=== PATIENT | male | born 1955 | race Caucasian/White ===

== ENCOUNTER 2017-03-07 11:28 | Day surgery (SDC) | payer BC, SELFPAY ==
[2017-03-03 15:06] VITALS: BMI 24.7
[2017-03-07] VITALS (10 sets, daily range): BP systolic 99–137; BP diastolic 57–73; PULSE 53–66; RESP 15–106; TEMP 36.7; O2SAT 95–100
--- NOTE | 2017-03-07 12:39 | [facility].SCOPE ---
- Procedure: Date: 03/07/17 Patient Date of :: 1955 Procedure Performed:: Colonoscopy with cold snare polypectomy Equipment: Olympus 180 variable stiffness pediatric colonoscope Indications:: Mr. Manriquez is a 61-year-old gentleman who is here for follow-up screening/surveillance colonoscopy. His last colonoscopy was 8 or 9 years ago (Dr. Shaka Barney) and a couple of polyps were removed. The patient does have some bowel irregularity and intermittent constipation. He reports no abdominal pain, weight loss, change in bowel habits or rectal bleeding. He reports no family history of colon cancer. Performing Provider:: Seb Dumont MD Referring Provider:: Ariel Rios MD Sedation:: Fentanyl 100 mg IV/ Versed 7 mg IV Procedure:: Prior to the procedure, a history and physical exam was performed, and patient's medications and allergies were reviewed. The risks, benefits and alternatives of the sedation and procedure were discussed with the patient. All questions were answered and informed consent was obtained. The patient was brought to the procedure room. Patient identification and proposed procedure were verified by the physician and the nurse. The patient was placed in a left lateral decubitus position and the scope was passed under direct vision. Throughout the procedure, the patient's blood pressure, pulse, and oxygen saturations were monitored continuously. The colonoscopy was accomplished without difficulty. The patient tolerated the procedure well. Findings:: On digital rectal examination there was normal rectal tone. There were no external hemorrhoids. The colonoscope was introduced through the anal canal to the rectum and advanced to the cecum. The ileocecal valve and appendiceal orifice were identified. The scope was advanced a short distance into the ileum which appeared grossly normal. The scope was then withdrawn into the colon. There were 3 colon polyps identified in the descending ?1 and sigmoid ?2. These ranged in size from 3-6 mm and were all removed via cold snare polypectomy. There were scattered diverticuli throughout the descending and sigmoid colon (LEFT colon). The rectum itself was normal. Upon retroflexion within the rectum there were grade 1 internal hemorrhoids. Impression: 1. Diminutive colonic polyps ?3 2. Left-sided diverticulosis 3. Grade internal hemorrhoids Recommendations:: I will follow up the polyp pathology and recommend repeat colonoscopy again in 5 years based upon the polyp histology. I would encourage fiber supplementation on a long-term daily maintenance basis. Complications:: None Estimated blood obtained (mL): 0
--- NOTE | 2017-03-07 12:42 | P.PCN_ITS ---
- Procedure: Date: 03/07/17 Patient Date of :: 1955 Procedure Performed:: Colonoscopy with cold snare polypectomy Equipment: Olympus 180 variable stiffness pediatric colonoscope Indications:: Mr. Manriquez is a 61-year-old gentleman who is here for follow-up screening/ surveillance colonoscopy. His last colonoscopy was 8 or 9 years ago (Dr. Shaka Barney) and a couple of polyps were removed. The patient does have some bowel irregularity and intermittent constipation. He reports no abdominal pain , weight loss, change in bowel habits or rectal bleeding. He reports no family history of colon cancer. Performing Provider:: Seb Dumont MD Referring Provider:: Ariel Rios MD Sedation:: Fentanyl 100 mg IV/ Versed 7 mg IV Procedure:: Prior to the procedure, a history and physical exam was performed, and patient' s medications and allergies were reviewed. The risks, benefits and alternatives of the sedation and procedure were discussed with the patient. All questions were answered and informed consent was obtained. The patient was brought to the procedure room. Patient identification and proposed procedure were verified by the physician and the nurse. The patient was placed in a left lateral decubitus position and the scope was passed under direct vision. Throughout the procedure, the patient's blood pressure, pulse, and oxygen saturations were monitored continuously. The colonoscopy was accomplished without difficulty. The patient tolerated the procedure well. Findings:: On digital rectal examination there was normal rectal tone. There were no external hemorrhoids. The colonoscope was introduced through the anal canal to the rectum and advanced to the cecum. The ileocecal valve and appendiceal orifice were identified. The scope was advanced a short distance into the ileum which appeared grossly normal. The scope was then withdrawn into the colon. There were 3 colon polyps identified in the descending ?1 and sigmoid ?2. These ranged in size from 3-6 mm and were all removed via cold snare polypectomy. There were scattered diverticuli throughout the descending and sigmoid colon ( LEFT colon). The rectum itself was normal. Upon retroflexion within the rectum there were grade 1 internal hemorrhoids. Impression: 1. Diminutive colonic polyps ?3 2. Left-sided diverticulosis 3. Grade internal hemorrhoids Recommendations:: I will follow up the polyp pathology and recommend repeat colonoscopy again in 5 years based upon the polyp histology. I would encourage fiber supplementation on a long-term daily maintenance basis. Complications:: None Estimated blood obtained (mL): 0
== END 2017-03-07 13:40 | disposition home or self-care (01) ==
LOC: OUTP 11:30
PROVIDERS: Family Provider Family Medicine; PCP Family Medicine; Visit Provider Internal Medicine Gastroenterology
PROC: 0DJD8ZZ Inspection of Lower Intestinal Tract, Via Natural or Artificial Opening Endoscopic (ICD-10-PCS; CPT 45378; principal; 2017-03-07 12:30)
DX: Z12.11 Encounter for screening for malignant neoplasm of colon (principal); K63.5 Polyp of colon; K57.30 Diverticulosis of large intestine without perforation or abscess without bleeding; K64.0 First degree hemorrhoids; Z86.010 Personal history of colon polyps
CPT/HCPCS: 45380; 99152; 99153

== ENCOUNTER → 2018-01-26 10:51 | Outpatient (CLI) | payer BC, SELFPAY ==
--- NOTE | 2018-01-26 10:54 | CT_ITS ---
EXAM: CT LUNG LOW DOSE WO CONTRAST TECHNIQUE: The exam was performed on a GE Light Speed [address] scanner using 3.0 mGy CTDI. A low dose helical CT CHEST was performed on a multi-detector scanner. All CT scans at this facility use one or more dose reduction techniques, viz.: automated exposure control, ma/kV adjustment per patient size (including targeted exams where dose is matched to indication, i.e. head) or iterative reconstruction technique. The LDCT was performed in a facility that meets the criteria for the screening program. Data regarding this exam was submitted to ACR which is an approved registry. The order for this exam indicates that it came as a result of a lung cancer screening counseling shard decision-making visit that included all the elements required of such a visit including smoking cessation. The radiologist interpreting this exam meets the CMS criteria for the LDCT lung cancer screening program. The exam is reported using the Lung-RADS classification scale and reported to the ACR registry. NOTE: This study was performed for the specific purposes of lung cancer screening and is not an alternative to diagnostic chest CT. RADIATION DOSE: CTDI vol(CT dose Index-volume) = 2.9mGy DLP (Dose Length Product) = 107.33 mGy-cm COMPARISON: . December 2016 low-dose screening CT chest HISTORY: 1 pack a day for 25-30 years. = 25-30 pack year history current smoker FINDINGS: Indeterminate/minimally suspect Lung Nodules(CATEGORY 3-as detailed below Findings Warrant follow-up CT chest 4-6 months LUNG PARENCHYMA FINDINGS: There is severe centrilobular and paraseptal emphysematous changes. Scattered blebs are most evident at the upper lung lacey upper lobes bilaterally most evident towards the apices. . Minimal stable apical pleural and parenchymal scarring at apices bilaterally. No significant change. No highly suspicious nodules evident but there are scattered small indeterminate nodules which will benefit from 6 month follow-up Indeterminate/Nodules(Category 3): . Bilateral small nodules which have increased in number since previous 2017 exam. A few new nodules & evident & others increased in size RIGHT CHEST: R UL superiorly (on axial slice 23 coronal 44.) New small somewhat stellate small density less than 5 mm size. RUL: 5 mm noncalcified nodule RUL anteriorly right midlung. (Axial slice 43 sag 33).Similar to perhaps possibly slight larger . R UL just inferior to this is a near 7 mm nodule. ( Axial slice 48 sagittal 34: Coronal 28) This nodule appears larger than previous 2017 study. . It is rather dense centrally & conceivably could be a granuloma but nonspecific at this point LEFT CHEST: L UL: At the anterior lateral periphery of Left Upper Lobe there is a tiny 3.5 mm wispy area of density/nodule (axial slice 28 sagittal 70, coronal 44) which is New Since prior study.. LLL: New 5 mm nodule just posterior to left emelina & left lower lobe bronchus on axial image 43, sagittal 53. . At the precardiac fat there is a stable 12 mm nodule.. Heart. 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 UPPER ABDOMEN. Stable benign right renal cyst. Extending from lateral mid right kidney. There is also a vague up to 2.5 cm probable debris-filled cyst at the lateral aspect of the upper pole right kidney. At the anterior left lobe of liver just lateral to the fissure for the ligamentum teres, falciform ligament there is a 3 x 2 cm probable hepatic cyst. This is more evident is larger than on last years study. I would suggest ultrasound to further survey of the liver to confirm cyst he
== END ==
PROVIDERS: PCP Family Medicine; Visit Provider Family Medicine
DX: Z12.2 Encounter for screening for malignant neoplasm of respiratory organs (principal); Z87.891 Personal history of nicotine dependence

== ENCOUNTER → 2018-02-15 08:21 | Outpatient (CLI) | payer BC, SELFPAY ==
--- NOTE | 2018-02-15 08:27 | US_ITS ---
US abdomen complete HISTORY: ITS.REASON: HEAPTIC CYST,RENAL CYST ORDERING PHYSICIAN: Ariel Rios MD PATIENT AGE: 62 years COMPARISON: None FINDINGS: PANCREAS:Poorly demonstrated due to overlying bowel gas LIVER:There is appropriate direction of the portal blood flow with a nondilated portal vein. 2.6 cyst is present in the left hepatic lobe anteriorly corresponding to the CT abnormality RIGHT KIDNEY:Unremarkable. Normal size and echogenicity. No hydronephrosis. There are 2 right renal cysts in the upper pole measuring approximately 2 and 2.4 cm. No hydronephrosis LEFT KIDNEY:Unremarkable. No hydronephrosis. Normal size and echogenicity. There is a small left renal cyst along the upper pole at 15 mm GALLBLADDER:No gallstones, gallbladder wall thickening, pericholecystic fluid, or biliary dilatation. AORTA:No evidence of aneurysmal dilatation. SPLEEN:Unremarkable. Normal size and echogenicity ASCITES:None demonstrated. IMPRESSION: 1. Bilateral renal cysts. 2. Benign-appearing cyst within left lobe of the liver at 2.6 [address] abnormality.
== END ==
PROVIDERS: PCP Family Medicine; Visit Provider Family Medicine
DX: K76.89 Other specified diseases of liver (principal); N28.1 Cyst of kidney, acquired
CPT/HCPCS: 76700

== ENCOUNTER → 2019-01-23 09:24 | Outpatient (POV) | payer BC, SELFPAY | PROVIDERS: Visit Provider Dermatology | DX: Z00.00 Encounter for general adult medical examination without abnormal findings (principal) ==

== ENCOUNTER → 2019-03-02 08:24 | Outpatient (CLI) | payer MEDICARE, SELFPAY ==
--- NOTE | 2019-03-02 08:27 | CT_ITS ---
PROCEDURE: CT LUNG SCREENING CLINICAL INDICATION: TOBACCO USE 30+ pack-year smoking history, asymptomatic for lung cancer COMPARISON: [facility]CT[facility] LDCT FOR LUNG CA SCREEN from 01/19/[address] lung screening from 01/26/2018 TECHNIQUE: The exam was performed on a GE Light Speed [address] scanner using 2.90 mGy CTDI. A low dose helical CT CHEST was performed on a multi-detector scanner. All CT scans at the facility use one or more dose reduction, viz: automated exposure control, ma/kV adjustment per patient size (including targeted exams where dose is matched to indication, i.e. head), or iterative reconstruction technique. The LDCT was performed in a facility that meets the criteria for the screening program. Data regarding this exam was submitted to ACR which is an approved registry. The order for this exam indicates that it came as a result of a lung cancer screening counseling shard decision-making visit that included all the elements required of such a visit including smoking cessation. The radiologist interpreting this exam meets the CMS criteria for the LDCT lung cancer screening program. The exam is reported using the Lung-RADS classification scale and reported to the ACR registry. NOTE: This study was performed for the specific purposes of lung cancer screening and is not an alternative to diagnostic chest CT. RADIATION DOSE: CTDI vol(CT dose Index-volume) = 2.90mG DLP (Dose Length Product) = 100.55 mGcm FINDINGS: Changes of COPD with centrilobular and paraseptal emphysema. Prior CABG. No change 5 mm nodule within the right upper lobe anteriorly. There are fibrotic changes in the right lung base. No new suspicious nodules identified. The Incidental note made of coronary artery calcifications and bilateral gynecomastia. There is kyphosis of the thoracic spine with diffuse ankylosis. Mild enlargement of the left adrenal gland which is stable OTHER FINDINGS: No other pertinent findings evident. IMPRESSION: Lung rads category 2 benign. Recommend continued annual LD CT screening Dictated by: Cali Long MD 03/05/2019 06:45 Electronically signed by Cali Long MD in [place] 03/05/2019 06:45
== END ==
PROVIDERS: PCP Family Medicine; Visit Provider Family Medicine
DX: Z87.891 Personal history of nicotine dependence (principal); Z12.2 Encounter for screening for malignant neoplasm of respiratory organs

== ENCOUNTER → 2020-03-06 13:20 | Outpatient (CLI) | payer MEDICARE, SELFPAY ==
--- NOTE | 2020-03-06 13:25 | CT_ITS ---
PROCEDURE: CT LUNG SCREENING CLINICAL INDICATION: NICOTINE DEPENDENCE X 50 YEARS 30+ pack year smoking history COMPARISON: CT CT LUNG SCREENING from 03/02/2019 TECHNIQUE: The exam was performed on a GE Light Speed [address] scanner using 2.90 mGy CTDI. A low dose helical CT CHEST was performed on a multi-detector scanner. All CT scans at the facility use one or more dose reduction, viz: automated exposure control, ma/kV adjustment per patient size (including targeted exams where dose is matched to indication, i.e. head), or iterative reconstruction technique. The LDCT was performed in a facility that meets the criteria for the screening program. Data regarding this exam was submitted to ACR which is an approved registry. The order for this exam indicates that it came as a result of a lung cancer screening counseling shard decision-making visit that included all the elements required of such a visit including smoking cessation. The radiologist interpreting this exam meets the [facility] criteria for the LDCT lung cancer screening program. The exam is reported using the Lung-RADS classification scale and reported to the ACR registry. NOTE: This study was performed for the specific purposes of lung cancer screening and is not an alternative to diagnostic chest CT. RADIATION DOSE: CTDI vol(CT dose Index-volume) = 2.90mG DLP (Dose Length Product) = 111.51 mGcm FINDINGS: COPD with scattered areas of scarring with centrilobular and paraseptal emphysema. Stable 5 mm noncalcified nodule within the right upper lobe image 40 series 3 OTHER FINDINGS: Coronary artery calcifications. Gynecomastia. There are few scattered small cervical and axillary lymph nodes. Exophytic isodense the projects off the posterior aspect of the right kidney suggesting a renal cyst. Ankylosis with the thoracic spine with exaggerated kyphosis IMPRESSION: Lung-RADS Category 2 Benign Appearance or Behavior Follow-up: Continue annual screening with LDCT in 12 months Dictated by: Cali Long MD 03/16/2020 06:37 Cali Long MD in [place] 03/16/2020 06:37
== END ==
PROVIDERS: PCP Family Medicine; Visit Provider Family Medicine
DX: Z87.891 Personal history of nicotine dependence (principal); Z12.2 Encounter for screening for malignant neoplasm of respiratory organs
CPT/HCPCS: 71271

== ENCOUNTER → 2021-03-09 07:42 | Outpatient (CLI) | payer MEDICARE, SELFPAY ==
--- NOTE | 2021-03-09 07:46 | CT_ITS ---
FINAL REPORT CLINICAL HISTORY: H/O NICOTINE DEPENDENCE COMPARISON: 03/06/2020 FINDINGS: CTDI vol (mGy): 2.[address] images of the chest were obtained using the low-dose protocol for screening. Patient is status post median sternotomy. Again seen is gynecomastia. There is moderate emphysema and pulmonary scarring. There is no evidence of mediastinal or hilar mass or adenopathy. No axillary mass or adenopathy is identified. On the lung window images, within the anterior right upper lobe is a 6 mm nodule, unchanged from prior exam. There is no new mass or nodule. Incidental note is made of multiple bilateral renal masses which do not appear to represent simple cysts. IMPRESSION: Multiple bilateral renal masses, not simple cysts. Recommend renal mass protocol CT for further evaluation. Lung RADS category 2S. Recommend 12 month followup low-dose CT for further evaluation. Reviewed, Interpreted and Dictated by Shekhar Alcala III, MD Transcribed by Maria Alejandra Corona Authenticated by Shekhar Alcala III, MD on 03/09/2021 10:29:15 AM [facility]
== END ==
PROVIDERS: PCP Family Medicine; Visit Provider Family Medicine
DX: Z87.891 Personal history of nicotine dependence (principal); Z12.2 Encounter for screening for malignant neoplasm of respiratory organs
CPT/HCPCS: 71271

== ENCOUNTER → 2021-03-18 10:33 | Outpatient (CLI) | payer MEDICARE, SELFPAY | PROVIDERS: Visit Provider Nurse Practitioner | DX: U07.1 COVID-19 (principal) | CPT/HCPCS: C9803; U0003; U0005 ==

== ENCOUNTER → 2021-03-31 07:44 | Outpatient (CLI) | payer MEDICARE, SELFPAY ==
--- NOTE | 2021-03-31 07:48 | CT_ITS ---
FINAL REPORT TECHNIQUE: Axial CT images of the abdomen were obtained without contrast. Coronal reformatted images were also obtained.This study was performed with techniques to keep radiation doses as low as reasonably achievable (ALARA). Individualized dose reduction techniques using automated exposure control or adjustment of mA and/or kV according to the patient''s size were employed. CLINICAL HISTORY: RT RENAL MASS FINDINGS: There is mild atelectasis or scarring in the right lung base. The liver has an unremarkable appearance, without evidence of mass. The gallbladder appears normal without evidence of gallstones. There is no evidence of biliary ductal dilatation. The pancreas appears normal. The spleen size is within normal limits. There are multiple bilateral renal masses, some of which are hyperdense and do not appear to be simple cysts. A hyperdense right renal mass measures 12 mm. The largest right renal mass measures 34 mm. There is a posterior left renal mass measuring 11 mm. There are multiple other bilateral renal masses. These cannot be accurately characterized without contrast. There is bilateral adrenal gland enlargement favoring adenomas. No abnormal fluid collection is seen. No localized inflammatory processes identified. There are moderate vascular calcifications. IMPRESSION: Multiple bilateral renal masses. These cannot be accurately characterized without contrast, some do not appear to be simple cysts. A dedicated renal mass protocol CT without and with contrast or a renal MRI would be necessary to further characterize. If patient cannot receive contrast a follow-up CT in 6 months would be helpful to evaluate for size stability. Reviewed, Interpreted and Dictated by Shekhar Alcala III, MD Transcribed by Maria Del Carmen Godinez Authenticated by Shekhar Alcala III, MD on 03/31/2021 10:18:42 AM [facility]
== END ==
PROVIDERS: PCP Family Medicine; Visit Provider Family Medicine
DX: N28.89 Other specified disorders of kidney and ureter (principal)
CPT/HCPCS: 74150

== ENCOUNTER → 2021-04-09 09:28 | Outpatient (CLI) | payer MEDICARE, SELFPAY ==
--- NOTE | 2021-04-09 09:31 | MR_ITS ---
FINAL REPORT CLINICAL HISTORY: BILAT KIDNEY MASSES. ABNORMAL CT SCAN 03-31-21. RT SIDED BACK PAIN. COMPARISON: CT scan dated 01/28/2022 FINDINGS: Multiplanar MR imaging of the abdomen was performed without contrast. There is bibasilar atelectasis. Images of the liver reveal no evidence of mass. There is no evidence of biliary ductal dilatation. The gallbladder has an unremarkable appearance. Multiple masses are seen in both kidneys which cannot be completely characterized without contrast but some appear to be simple cysts including a 3.1 cm probable cyst in the right kidney. Multiple other bilateral renal masses demonstrate increased signal on the T1-weighted images which are favored to represent hemorrhagic cysts including an upper pole right renal cyst measuring 12 mm. There are 2 masses in the left kidney which show slight increased signal on T1-weighted images measuring 20 mm and 8 mm. These are indeterminate but also favor to represent complex/hemorrhagic cysts. Findings are stable since prior CT. IMPRESSION: Multiple bilateral renal masses which cannot be completely characterized but favor to be a combination of simple and complex/hemorrhagic cysts. These could be further evaluated with renal MRI or renal mass protocol CT in 6 months. Reviewed, Interpreted and Dictated by Shekhar Alcala III, MD Transcribed by Tamera Livingston Authenticated by Shekhar Alcala III, MD on 04/09/2021 01:25:38 PM [facility]
== END ==
PROVIDERS: PCP Family Medicine; Visit Provider Family Medicine
DX: N28.89 Other specified disorders of kidney and ureter (principal)
CPT/HCPCS: 74181

== ENCOUNTER → 2021-10-22 09:32 | Outpatient (CLI) | payer MEDICARE, SELFPAY ==
--- NOTE | 2021-10-22 09:35 | MR_ITS ---
FINAL REPORT TECHNIQUE: Multiplanar multisequence imaging of the abdomen was obtained without contrast. CLINICAL HISTORY: BILATERAL KIDNEY MASSES 6 month follow-up COMPARISON: 04/09/2021 FINDINGS: T2 hyperintense lesions in the anterior left lobe of the liver are unchanged and favored to be cysts. Remainder of the liver is homogeneous.. The gallbladder is present. The spleen is normal in size and signal intensity. The right adrenal gland is unremarkable. A left adrenal nodule appears stable and decreases in signal intensity on out of phase imaging most consistent with an adenoma. A small T2 hyperintense lesion along the superior aspect of the body of the pancreas is unchanged measuring approximately 1 cm. This is best seen on coronal T2-weighted image 16. There are bilateral renal lesions. On the right, there is a complex cyst with thin septa in the upper pole. There is a separate T2 hypointense, T1 hyperintense lesion in the upper pole, also stable. In the more inferior right kidney, there is a simple cyst. There are multiple simple cysts in the left kidney. A lesion in the anterior left kidney measuring 2.6 cm is not a simple cyst on T1-weighted imaging that is stable in appearance when compared to the prior exam. Limited evaluation of the GI tract is unremarkable. There is no ascites or lymphadenopathy. IMPRESSION: 1. Stable bilateral renal lesions, likely a combination of simple and complex (hemorrhagic/proteinaceous) cysts. 2. Stable T2 hyperintense liver lesions, likely cysts and a stable small T2 hyperintense lesion along the superior pancreas. 3. Stable left adrenal nodule, favor adenoma. Authenticated and [facility]
== END ==
PROVIDERS: PCP Family Medicine; Visit Provider Family Medicine
DX: N28.89 Other specified disorders of kidney and ureter (principal)
CPT/HCPCS: 74181

== ENCOUNTER → 2022-01-26 14:14 | Outpatient (POV) | payer MEDICARE, SELFPAY | PROVIDERS: Visit Provider Dermatology | DX: Z00.00 Encounter for general adult medical examination without abnormal findings (principal) ==

== ENCOUNTER → 2022-05-04 10:21 | Outpatient (CLI) | payer MEDICARE, SELFPAY ==
--- NOTE | 2022-05-04 10:29 | CT_ITS ---
FINAL REPORT CLINICAL HISTORY: H/O TOBACCO USE, smokes 3/4 pack currently for 54 yrs, was diagnoses with basal cell carcinoma 2022, no family hx of lung cancer COMPARISON: March 09, 2021 and March 02, 2019 FINDINGS: Low-Dose Chest CT Axial images were obtained from the lung apex to the mid abdomen by computed tomography. Low-dose protocol was utilized. CTDI vol (mGy): 2.90 DLP (mGy-cm): 102.90 There are several borderline axillary nodes, stable. There is no hilar or mediastinal adenopathy. There is gynecomastia. The heart is proper size. There is no pericardial or pleural effusion. Lung window images demonstrate a 6 mm anterior right upper lobe nodule on image 41, stable since 2020. No new mass or nodule is identified. There are moderate changes of emphysema with pulmonary scarring. On the limited images of the upper abdomen, multiple bilateral renal masses are again identified. Some of which do not appear to be simple cysts but are visually stable. IMPRESSION: 6 mm right upper lobe nodule stable since 2020. Modifier S: Multiple bilateral renal masses, some do not appear to be simple cysts but are visually stable. Lung RADS category 1S. Recommend 12 month follow-up low-dose chest CT. Reviewed, Interpreted and Dictated by Shekhar Alcala III, MD Transcribed by Maria Del Carmen Godinez Authenticated and [facility]
== END ==
PROVIDERS: PCP Family Medicine; Visit Provider Family Medicine
DX: Z87.891 Personal history of nicotine dependence (principal); Z12.2 Encounter for screening for malignant neoplasm of respiratory organs
CPT/HCPCS: 71271

== ENCOUNTER → 2023-02-10 11:13 | Outpatient (CLI) | payer MEDICARE, SELFPAY ==
--- NOTE | 2023-02-10 11:18 | CA_ITS ---
APPROVED REPORT EXAM: Comprehensive 2D, Doppler, and color-flow Echocardiogram Manager Vehicle: APOLINAR Gutierres, RVS Ht: 5 ft 5 in Wt: 156lbs BSA: 1.78 BP: 177/73 mmHg Indications: CAD , CP, Rh-[id number]-[id number] ago, Smoker, HTN 2D Dimensions IVSd 1.12 cm LVEF (Visual) 51.40 % PWd 1.10 cm LA Volume 49.20 mL LVDd 4.73 cm LA Volume Index [id number] mL/m2 (M/F) 16-34 LVDs 3.49 cm Left Atrium 2.73 cm M-Mode Dimensions LA Diam 3.45 cm (1.9-4.0) EPSs 1.21 cm TAPSE 1.41 (<1.7) LV Diastology E Decel Time 193 (160-240 msec) E/A Ratio 1.50 MED A' 10.10 cm/s LAT A' 14.60 cm/s Aortic Valve BO Index 1.19 cm2/m2 AoV Peak Dat. 125.0 (50-130 cm/s) AO Peak GR. 6.20 mmHg AO Mean GR. 3.10 (<5 mmHg) AO VTI 28.7 (18-25 cm) BO (VTI) 2.16 (2.5-4.5 cm2) Mitral Valve MV A Velocity 48.0 (40-130 cm/s) E/A Ratio 1.50 Tricuspid Valve TR P. Velocity 197.00 cm/s RAP Estimate 10.00 mmHg RVSP 25.50 mmHg Left Ventricle The left ventricle is normal size. The left ventricular systolic function is normal. The left ventricular ejection fraction is within the normal range. There is increased LV wall thickness. There is normal LV segmental wall motion. Diastolic function is normal. LVEF is 55%. Right Ventricle The right ventricle is mildly dilated. The right ventricular systolic function is normal. Atria The left atrium size is normal. The right atrium size is normal. Aortic Valve The aortic valve is mildly thickened. The aortic valve opens well. There is no aortic valvular stenosis. No aortic regurgitation is present. Mitral Valve The mitral valve leaflets are thin and pliable. No evidence of mitral valve stenosis. Trace mitral regurgitation. Tricuspid Valve The tricuspid valve leaflets are thin and pliable. Trace tricuspid regurgitation. RVSP is normal. Pulmonic Valve The pulmonary valve is normal in structure. Trace pulmonic regurgitation. Great Vessels The aortic root is normal in size. The ascending aorta is normal in size. The IVC is not well-visualized. Pericardium There is no pericardial effusion. Other Information Study Quality: Fair Conclusion Normal biventricular systolic function. Mild RV dilation. No significant valvular stenosis or regurgitation. Electronically signed by : Drea Greenberg MD 02/20/2023 20:13:27
== END ==
LOC: RT 11:13
PROVIDERS: PCP Family Medicine; Visit Provider Internal Medicine
DX: K30 Functional dyspepsia (principal); R07.9 Chest pain, unspecified; Z95.1 Presence of aortocoronary bypass graft
CPT/HCPCS: 93306

== ENCOUNTER 2023-02-11 08:34 | Day surgery (SDC) | payer MEDICARE, SELFPAY ==
[2023-02-11] VITALS (15 sets, daily range): BP systolic 132–188; BP diastolic 58–89; PULSE 45–59; RESP 16–20; TEMP 36.9; O2SAT 96–100; BMI 25.9
--- NOTE | 2023-02-11 07:08 | IR_ITS ---
APPROVED REPORT Patient Location: Outpatient [facility] Developer: EDILSON Curtis RT (R) PROCEDURES Left heart catheterization Left ventriculogram Selective coronary angiogram Left internal mammary angiography Selective engagement of saphenous vein graft to circumflex artery Selective engagement of the saphenous vein graft to the right coronary artery Drug-eluting stent deployment to the ostial segment of the saphenous vein graft to the right coronary artery followed by drug-eluting stenting to the distal segment of the saphenous vein graft by the right coronary INDICATION Coronary artery disease, Angina pectoris, History of coronary bypass surgery Informed consent was obtained prior to the procedure. COMPLICATIONS NONE Estimated Blood Loss: LESS THAN 10 ML TECHNIQUE One percent lidocaine used to anesthetize the right groin. The right femoral artery was accessed via the Seldinger technique and a 5 [place] sheath was placed in the right femoral artery. A JL 4, JR4 catheter were used to perform left heart catheterization, left ventriculogram selective coronary angiography as well as selective engagement of the 2 vein grafts and the left internal mammary artery. At the end the diagnostic angiogram therapeutic Was administered giving a therapeutic ACT and the 5 [place] sheath was exchanged for a 6 [place] sheath. A 6 [place] multipurpose catheter was used to intubate the saphenous vein graft to the right coronary artery. A Choice PT extra-support wire was placed distally and a 3 mm x 26 mm [place] frontier stent was deployed at 24 danica reducing the critical stenosis to 0%. A 3.5 x 30 mm [place] frontier stent was then placed distally and deployed at 18 danica reducing the stenosis to 0%. Patient experienced excellent angiographic and clinical results. At the end the procedure the apparatus was removed the groin is reprepped closure change sheath was removed and hemostasis was achieved using Angio-Seal device patient was transferred to postop putting in stable condition ANGIOGRAPHIC RESULTS The left main artery Distally occluded The right coronary artery Is a dominant vessel and has proximal smooth 30% stenosis with mid vessel smooth 30% stenoses. There is flow throughout the posterior lateral branch the posterior descending artery is ostially occluded The CASTELLANOS ventriculogram reveals Preserved 55 to 60% with moderate inferior hypokinesis The left ventricular end-diastolic pressure 10 mmHg MOORE to LAD patent Saphenous to circumflex artery patent Saphenous to posterior descending artery has an ostial proximal 70% stenosis followed by a distal 90% stenosis. There is no retrograde filling of the posterior lateral branch IMPRESSION Coronary disease as described above Successful stenting the ostial proximal saphenous vein graft supplying the posterior descending artery followed by additional stenting to the distal segment of the same saphenous vein graft reducing severe and critical disease to 0% Preserved ejection fraction Normal left ventricular end-diastolic pressure PLAN 1. Dual antiplatelet therapy 2. Avoidance of tobacco products 3. Risk factor modification 4. Cardiac rehabilitation 5. LDL less than 55 to be achieved with high intensity statin Electronically signed by : Carrington Upton MD 02/11/2023 12:40:43
[2023-02-11 09:16] LABS: Basophils # 0.1 K/mm3 (0-0.2); Basophils % 0.9 % (0.1-2.0); Eosinophils # 0.2 K/mm3 (0.0-0.4); Eosinophils % 2.8 % (0.1-12.0); Hematocrit 43.7 % (42.0-52.0); Hemoglobin 13.8 g/dL (14.1-18.0); Lymphocytes # 1.8 K/mm3 (0.7-4.5); Lymphocytes % 20.8 % (10-50); Mean Corpuscular HGB Conc 31.6 g/dL (31.8-35.4); Mean Corpuscular Volume 91.8 fl (80-94); Mean Platelet Volume 8.1 fl (7.4-10.4); Monocytes # 0.5 K/mm3 (0.1-1.0); Monocytes % 6.1 % (1.7-9.3); Neutrophils # 5.9 K/mm3 (1.8-7.8); Neutrophils % 69.4 % (37.0-80.0); Platelet Count 305 K/mm3 (142-424); Red Blood Count 4.76 M/mm3 (4.60-6.20); White Blood Count 8.4 K/mm3 (4.8-10.8)
[2023-02-11 09:18] LABS: Chloride 105 mmol/L (98-107); Sodium 141 mmol/L (136-145)
[2023-02-11 09:20] LABS: Blood Urea Nitrogen 13 mg/dl (9-20)
[2023-02-11 09:21] LABS: Calcium 9.1 mg/dl (8.4-10.2); Carbon Dioxide 33 mmol/L (22.0-30.0); Creatinine Clearance Estimated 70 mL/min (50-200); Estimated Glomerular Filt Rate 84 ml/min (>60); GFR (African American) 101 ML/MIN (>60); Glucose 97 mg/dl (74-100)
[2023-02-11 12:43] LABS: CATHL Activated Clotting Time 372 SEC (74-125)
== END 2023-02-11 15:12 | disposition home or self-care (01) ==
PROVIDERS: PCP Family Medicine; Visit Provider Internal Medicine
DX: K30 Functional dyspepsia (principal); R07.9 Chest pain, unspecified; Z95.1 Presence of aortocoronary bypass graft; I25.118 Atherosclerotic heart disease of native coronary artery with other forms of angina pectoris; Z79.899 Other long term (current) drug therapy; J44.9 Chronic obstructive pulmonary disease, unspecified; F17.210 Nicotine dependence, cigarettes, uncomplicated; I77.1 Stricture of artery
CPT/HCPCS: 80048; 85025; 85347; 92937; 93459; 99152; 99153; C1725; C1760; C1769; C1874; C1876; C1894; C9604; J1644; Q9967

== ENCOUNTER 2023-03-01 15:07 | Outpatient (CLI) | payer MEDICARE, SELFPAY ==
[2023-03-01 16:23] LABS: Anion Gap 10.6 mEq/L (5-15); Blood Urea Nitrogen 10 mg/dl (9-20); Calcium 9.3 mg/dl (8.4-10.2); Carbon Dioxide 29 mmol/L (22.0-30.0); Chloride 104 mmol/L (98-107); Estimated Glomerular Filt Rate 96 ml/min (>60); GFR (African American) 116 ML/MIN (>60); Glucose 82 mg/dl (74-100); Potassium 4.6 mmoL/L (3.5-5.1); Sodium 139 mmol/L (136-145)
== END 2023-03-01 23:59 ==
LOC: LAB 15:08
PROVIDERS: PCP Family Medicine; Visit Provider Internal Medicine
DX: E78.5 Hyperlipidemia, unspecified (principal); I25.10 Atherosclerotic heart disease of native coronary artery without angina pectoris; K30 Functional dyspepsia; R94.31 Abnormal electrocardiogram [ECG] [EKG]; Z95.1 Presence of aortocoronary bypass graft
CPT/HCPCS: 36415; 80048

== ENCOUNTER 2023-04-05 14:03 | Outpatient (CLI) | payer MEDICARE, SELFPAY ==
[2023-04-05 14:35] LABS: Basophils # 0.1 K/mm3 (0-0.2); Basophils % 0.8 % (0.1-2.0); Eosinophils # 0.2 K/mm3 (0.0-0.4); Eosinophils % 2.5 % (0.1-12.0); Hematocrit 41.9 % (42.0-52.0); Hemoglobin 13.5 g/dL (14.1-18.0); Lymphocytes # 1.5 K/mm3 (0.7-4.5); Lymphocytes % 16.9 % (10-50); Mean Corpuscular HGB Conc 32.1 g/dL (31.8-35.4); Mean Corpuscular Hemoglobin 29.1 pg (27.0-31.2); Mean Corpuscular Volume 90.4 fl (80-94); Mean Platelet Volume 8.1 fl (7.4-10.4); Monocytes # 0.6 K/mm3 (0.1-1.0); Monocytes % 6.6 % (1.7-9.3); Neutrophils # 6.4 K/mm3 (1.8-7.8); Neutrophils % 73.1 % (37.0-80.0); Platelet Count 366 K/mm3 (142-424); Red Blood Count 4.63 M/mm3 (4.60-6.20); Red Cell Distribution Width 14.9 % (11.5-17.5); White Blood Count 8.8 K/mm3 (4.8-10.8)
[2023-04-05 14:52] LABS: Chloride 105 mmol/L (98-107)
[2023-04-05 14:53] LABS: Potassium 4.8 mmoL/L (3.5-5.1); Sodium 139 mmol/L (136-145)
[2023-04-05 14:55] LABS: Alanine Aminotransferase 14 U/L (12-78); Anion Gap 8.8 mEq/L (5-15); Aspartate Amino Transferase 26 U/L (17-59); Bilirubin,Unconjugated 0.2 mg/dL (0.0-1.1); Blood Urea Nitrogen 9 mg/dl (9-20); Carbon Dioxide 30 mmol/L (22.0-30.0); Cholesterol 168 mg/dl (140-200); Estimated Glomerular Filt Rate 96 ml/min (>60); GFR (African American) 116 ML/MIN (>60); Triglycerides 92 mg/dl (30-150); VLDL Cholesterol 18 mg/dL (0-40)
[2023-04-05 14:56] LABS: Albumin Level 4.1 g/dl (3.5-5.0); Alkaline Phosphatase 100 U/L (38-126); Bilirubin,Direct 0.3 mg/dl (0.0-0.4); Bilirubin,Indirect 0.2 mg/dL (0.0-0.9); Bilirubin,Total 0.5 mg/dl (0.2-1.3); Calcium 9.4 mg/dl (8.4-10.2); Chol/HDL Ratio 3.7 (1-3.5); Glucose 96 mg/dl (74-100); HDL Cholesterol 45 mg/dl (40-60); Magnesium 2.1 mg/dl (1.6-2.3); Total Protein,Serum 6.8 g/dl (6.3-8.2)
[2023-04-05 15:12] LABS: Direct LDL Cholesterol 92.67 mg/dL (100-129); Free T4 (Free Thyroxine) 0.83 ng/dl (0.78-2.19)
[2023-04-05 15:27] LABS: Thyroid Stimulating Hormone 0.93 uIU/mL (0.465-4.68)
== END 2023-04-05 23:59 ==
LOC: LAB 14:05
PROVIDERS: PCP Family Medicine; Visit Provider Internal Medicine
DX: E78.5 Hyperlipidemia, unspecified (principal); I25.10 Atherosclerotic heart disease of native coronary artery without angina pectoris; K30 Functional dyspepsia; R94.31 Abnormal electrocardiogram [ECG] [EKG]; Z95.1 Presence of aortocoronary bypass graft
CPT/HCPCS: 36415; 80048; 80061; 80076; 83735; 84439; 84443; 85025

== ENCOUNTER 2023-05-04 14:31 | Outpatient (CLI) | payer MEDICARE, SELFPAY ==
[2023-05-04 15:41] LABS: Chol/HDL Ratio 3.8 (1-3.5); Cholesterol 150 mg/dl (140-200); HDL Cholesterol 40 mg/dl (40-60); Triglycerides 125 mg/dl (30-150); VLDL Cholesterol 25 mg/dL (0-40)
[2023-05-04 15:53] LABS: Direct LDL Cholesterol 78.27 mg/dL (100-129)
== END 2023-05-04 23:59 ==
PROVIDERS: PCP Family Medicine; Visit Provider Internal Medicine
DX: E78.5 Hyperlipidemia, unspecified (principal); I25.118 Atherosclerotic heart disease of native coronary artery with other forms of angina pectoris; Z79.899 Other long term (current) drug therapy
CPT/HCPCS: 36415; 80061

== ENCOUNTER 2023-07-07 15:18 | Outpatient (CLI) | payer MEDICARE, SELFPAY ==
--- NOTE | 2023-07-07 15:20 | CT_ITS ---
FINAL REPORT TECHNIQUE: Thin section axial images were obtained from the lung apices to the upper abdomen by computed tomography. Reformatted images were obtained and reviewed. This study was performed with techniques to keep radiation doses al low as reasonably achievable (ALARA). Individualized dose reduction techniques using automated exposure control or adjustment of mA and/or kV according to the patient's size were employed. CLINICAL HISTORY: H/O TOBACCO USE current smoker 1/2 ppd x 55 years COMPARISON: 10/22/2021, 05/04/2022, and 03/02/2019 FINDINGS: CHEST CT LOW DOSE CTDI vol (mGy): 2.90 DLP (mGy-cm): 105.25 There is no axillary adenopathy. There is no mediastinal or hilar mass or adenopathy. Prior median sternotomy. The heart is enlarged in size. There is no pericardial or pleural effusion. There is mild emphysema and mild pulmonary scarring. Lung window images demonstrate an anterior right upper lobe nodule measuring 6 mm, was 6 mm, on image 44, stable from 2020. There is moderate emphysema and mild scarring. There is mild gynecomastia. Limited images of the upper abdomen demonstrate multiple renal masses, some of which do not appear to be cystic but are stable and favored to represent simple and complex cysts. IMPRESSION: Lung-RADS category 1. Recommend 12 month follow up low dose chest CT. Reviewed, Interpreted and Dictated by Shekhar Alcala III, MD Transcribed by Kiana Orantes Authenticated and [facility]
== END 2023-07-07 23:59 | disposition home or self-care (01) ==
PROVIDERS: PCP Family Medicine; Visit Provider Family Medicine
DX: F17.210 Nicotine dependence, cigarettes, uncomplicated (principal); Z12.2 Encounter for screening for malignant neoplasm of respiratory organs
CPT/HCPCS: 71271

== ENCOUNTER 2024-07-03 14:16 | Outpatient (CLI) | payer MEDICARE, SELFPAY ==
--- NOTE | 2024-07-03 14:21 | CT_ITS ---
FINAL REPORT TECHNIQUE: Thin section axial images were obtained through the lungs using a low-dose technique per lung cancer screening protocol. Reconstruction images were obtained using the axial data. Exam was performed using dose reduction technique. This study was performed with techniques to keep radiation doses as low as reasonably achievable (ALARA). Individualized dose reduction techniques using automated exposure control or adjustment of mA and/or kV according to the patient's size were employed. CLINICAL HISTORY: TOBACCO USE. Smokes 1 ppd for 55 yrs. CAD. Hx of skin cancer. Exposure to second hand smoke. COMPARISON: 07/07/2023 FINDINGS: CTDLvol: 2.90 DLP: 100.29 Current smoker 55 pack year history Lungs: Changes of emphysema are once again noted. There is a nodule in the inferior right upper lobe best seen on image #38 of series 4, measuring 6 mm in size, stable. No new nodules are identified. Lymph nodes: No thoracic lymphadenopathy. Mediastinum: Heart size is normal. Prominent coronary artery calcifications are present, as noted on the prior exam. Pleura/pericardium: No pleural or pericardial effusion. Other: There are bilateral renal lesions, stable when compared to the prior exam. IMPRESSION: No suspicious pulmonary nodule or mass. Lung RADS: 1S, the S designation for the stable bilateral renal lesions. Recommendation: 12-month follow-up LDCT Reviewed, Interpreted and Dictated by Steff Mae MD Transcribed by Amira Timmons Authenticated and [facility]
== END 2024-07-03 23:59 | disposition home or self-care (01) ==
LOC: RAD 14:18
PROVIDERS: PCP Family Medicine; Visit Provider Family Medicine
DX: F17.210 Nicotine dependence, cigarettes, uncomplicated (principal); Z12.2 Encounter for screening for malignant neoplasm of respiratory organs
CPT/HCPCS: 71271